=== PATIENT | female | born 1970 | race Caucasian/White ===

== ENCOUNTER 2020-04-07 10:37 | Outpatient (REF) | payer OTHER, SELFPAY | END 2020-04-07 10:38 | disposition home or self-care (01) | LOC: HO.LAB 10:37 | PROVIDERS: PCP Internal Medicine; Visit Provider Internal Medicine | DX: Z20.828 Contact with and (suspected) exposure to other viral communicable diseases (principal) | CPT/HCPCS: C9803; U0003 ==

== ENCOUNTER 2021-04-26 08:25 | Outpatient (REF) | payer OTHER, SELFPAY ==
[2021-04-26 09:15] LABS: Binax Internal Control QC Valid; Binax Now Covid-19 Ag Negative (Negative)
== END 2021-04-26 08:26 | disposition home or self-care (01) ==
LOC: HO.LAB 08:25
PROVIDERS: Visit Provider Internal Medicine
DX: Z20.822 Contact with and (suspected) exposure to COVID-19 (principal)
CPT/HCPCS: C9803